=== PATIENT | female | born 1955 | race Caucasian/White ===

== ENCOUNTER 2017-11-19 08:20 | Day surgery (SDC) | payer MEDICAID ==
[2017-11-15 08:30] LABS: BASOPHIL % 0.4 % (0-2); PLATELET COUNT 207 x10^3mcL (130-400); RED CELL DISTRIBUTION WIDTH 12.6 % (11.5-14.5)
[2017-11-15 09:16] LABS: ALBUMIN 3.9 g/dL (3.4-5.0); ALKALINE PHOSPHATASE 99 U/L (46-116); ALT/SGPT 32 U/L (14-59); AST/SGOT 27 U/L (15-37); BILIRUBIN TOTAL 0.4 mg/dL (0.20-1.00); CALCIUM 8.3 mg/dL (8.5-10.1); CARBON DIOXIDE 27.2 mmol/L (21-32); CHLORIDE SERUM 103 mmol/L (98-107); CREATININE SERUM 0.7 mg/dL (0.6-1.0); GFR1 > 60 mL/min; GLUCOSE SERUM 119 mg/dL (74-106); POTASSIUM SERUM 3.6 mmol/L (3.5-5.1); SODIUM SERUM 138 mmol/L (136-145); TOTAL PROTEIN, SERUM 7.8 g/dL (6.4-8.2)
[~2017-11-19] VITALS: Ht 154.9 cm; Wt 88.9 kg
[2017-11-19 09:03] VITALS: BP 161/101
[2017-11-19 16:15] VITALS: BP 145/89
== END 2017-11-19 16:05 | disposition home or self-care (01) ==
LOC: DS 08:20 → OR 12:30 → DS 16:05
PROVIDERS: Surgery
PROC: 07B50ZX Excision of Right Axillary Lymphatic, Open Approach, Diagnostic (ICD-10-PCS; 2017-11-19)
PROC: 0HBT0ZX Excision of Right Breast, Open Approach, Diagnostic (ICD-10-PCS; 2017-11-19)
PROC: 0HBT0ZZ Excision of Right Breast, Open Approach (ICD-10-PCS; principal; 2017-11-19 12:30)
DX: C50.311 Malignant neoplasm of lower-inner quadrant of right female breast (principal); Z17.0 Estrogen receptor positive status [ER+]; Z68.36 Body mass index [BMI] 36.0-36.9, adult
CPT/HCPCS: 77065; 88329; 88344; 88361; J1170; J2001; J2175; J2250; J2405; J2704; J3010; J3490; J7030; Q9968

== ENCOUNTER 2018-04-23 20:52 | Emergency (ER) | payer MEDICAID ==
[~2018-04-23] VITALS: Ht 152.4 cm; Wt 88.5 kg
[2018-04-23 21:02] VITALS: BP 202/108; Ht 152.4 cm; Wt 88.5 kg
== END 2018-04-23 22:47 | disposition home or self-care (01) ==
LOC: ED 20:52
DX: L50.0 Allergic urticaria (principal); Z88.0 Allergy status to penicillin; Z98.890 Other specified postprocedural states; Z85.3 Personal history of malignant neoplasm of breast
CPT/HCPCS: J1200; J7512

== ENCOUNTER 2019-02-23 20:21 | Emergency (ER) | payer MEDICAID ==
[~2019-02-23] VITALS: Ht 152.4 cm; Wt 84.8 kg
[2019-02-23 20:53] VITALS: Ht 152.4 cm; Wt 84.8 kg
[2019-02-23 22:59] VITALS: BP 168/75
== END 2019-02-23 22:59 | disposition home or self-care (01) ==
LOC: ED 20:21
DX: T78.40XA Allergy, unspecified, initial encounter (principal); I10 Essential (primary) hypertension; Z88.0 Allergy status to penicillin; X58.XXXA Exposure to other specified factors, initial encounter
CPT/HCPCS: J1200; J7512